=== PATIENT | female | born 1960 | race Caucasian/White ===

== ENCOUNTER 2023-10-12 22:23 | Emergency (ER) | payer OTHER ==
[~2023-10-12] VITALS: Ht 167.6 cm; Wt 56.2 kg
[2023-10-12 22:28] VITALS: BP 122/89; PULSE 87; RESP 18; TEMP 97.3; O2SAT 96
[2023-10-12 23:02] VITALS: O2SAT 98
[2023-10-12] MEDS ORDERED: AMPICILLIN/SULBACTAM 3 GM VIAL ONE (23:35)
[2023-10-12] MEDS: MORPHINE SULFATE 4 MG/ML SYR IVP ONE (23:44)
[2023-10-12] MEDS: AMPICILLIN/SULBACTAM 3 GM in NACL 0.9% 100 ML IV ONE (23:45)
[2023-10-13] MEDS ORDERED: NAPR-54 PO (01:13)
[2023-10-13] MEDS ORDERED: AMOX-1230 PO (01:13)
[2023-10-13 01:20] VITALS: BP 129/60; PULSE 68; RESP 16; TEMP 97.9; O2SAT 97
[2023-10-13] MEDS: BACITRACIN OINT 500 UNITS/GM PKT TP ONE (01:25)
== END 2023-10-13 01:50 | disposition home or self-care (01) ==
LOC: MED 22:23
DX: T14.8XXA Other injury of unspecified body region, initial encounter (principal); R32 Unspecified urinary incontinence; W55.03XA Scratched by cat, initial encounter; Y93.89 Activity, other specified; Y92.89 Other specified places as the place of occurrence of the external cause; Y99.8 Other external cause status
CPT/HCPCS: 36415; 87040; 96365; 96375; 99284; J0295; J2270